=== PATIENT | female | born 1980 | race Caucasian/White ===

== ENCOUNTER 2017-12-22 19:07 | Emergency (ER) | payer MEDICAID ==
[~2017-12-22] VITALS: Ht 172.7 cm; Wt 118.2 kg
[2017-12-22 19:27] VITALS: Ht 172.7 cm; Wt 118.2 kg
[2017-12-22] MEDS ORDERED: BACTRIM DS TABL1 TAB PO (21:32)
[2017-12-22] MEDS ORDERED: VOLTAREN75 MG PO (21:32)
[2017-12-22 21:34] VITALS: BP 123/67
== END 2017-12-22 21:35 | disposition home or self-care (01) ==
LOC: D.ER 19:07
DX: L03.311 Cellulitis of abdominal wall (principal)

== ENCOUNTER 2018-10-25 18:14 | Emergency (ER) | payer MEDICAID ==
[~2018-10-25] VITALS: Ht 172.7 cm; Wt 115.9 kg
[~2018-10-25 18:14] MED LIST: BACTRIM DS TABL1 TAB PO; VOLTAREN75 MG PO
[2018-10-25 18:20] VITALS: Ht 172.7 cm; Wt 115.9 kg
[2018-10-25 18:58] LABS: HEMATOCRIT 36.3 % (36.0-48.0); HEMOGLOBIN 12.9 g/dL (12-16); MCH 29.7 pg (26.0-34.0); MCHC 35.5 g/dL (31.0-37.0); MCV 83.4 fL (80.0-100.0); MEAN PLATELET VOLUME 9.9 fL (7.4-10.4); PLATELET COUNT 69 10x3/uL (130-400); RBC 4.35 10x6/uL (4.00-5.40); RDW 13.1 % (11.5-14.5); WBC 3.6 10x3/uL (4.8-10.8)
[2018-10-25 19:09] LABS: ALBUMIN 2.5 g/dL (3.4-5.0); ANION GAP 15.6 mmol/L (8-16); BILIRUBIN - TOTAL 0.54 mg/dL (0.2-1.3); CALCIUM 7.7 mg/dL (8.5-10.1); CARBON DIOXIDE 22.5 mmol/L (21.0-32.0); CREATININE - SERUM 1.1 mg/dL (0.6-1.3); POTASSIUM - SERUM 3.1 mmol/L (3.5-5.1); PROTEIN - SERUM 6.6 g/dL (6.4-8.2)
[2018-10-25 19:47] LABS: LYMPHOCYTES 45 % (15-50); NEUTROPHILS 50 % (40-80); PLATELET ESTIMATE DECREASED
[2018-10-25 20:14] LABS: ERYTHROCYTE SEDIMENTATION RATE 34 mm/hr (0-20)
[2018-10-25 21:17] LABS: INR 1.12 (0.85-1.17); PROTIME 13.9 SECONDS (11.6-15.0)
[2018-10-25 21:18] LABS: APPEARANCE CLEAR (CLEAR); BILIRUBIN NEGATIVE (NEGATIVE); COLOR YELLOW (YELLOW); GLUCOSE 100 mg/dL (NEGATIVE); KETONE SMALL mg/dL (NEGATIVE); NITRITE NEGATIVE (NEGATIVE); PROTEIN NEGATIVE (NEGATIVE); SPECIFIC GRAVITY 1.025 (1.005-1.020); UROBILINOGEN NORMAL (NORMAL)
[2018-10-25 21:18] LABS: APTT 39.4 SECONDS (22.8-39.4)
[2018-10-25 21:41] LABS: CREATINE KINASE 42 UL (21-215); TROPONIN-I < 0.017 ng/mL (0.000-0.060)
[2018-10-25 22:05] LABS: AMYLASE - SERUM 23 U/L (25-115); LIPASE 58 U/L (73-393)
[2018-10-25] MEDS ORDERED: MONODOX100 MG PO (23:31)
[2018-10-25] MEDS ORDERED: VOLTAREN75 MG PO (23:33)
[2018-10-25] MEDS ORDERED: ZOFRAN ODT4 MG/UDTAB PO (23:33)
[2018-10-26 00:08] VITALS: BP 103/65
[2018-10-29 14:11] LABS: RMSF IGM 1.17 index (0.00-0.89)
[2018-11-01 13:11] LABS: A. PHAGOCYTOPHILIUM PCR Negative (Negative)
== END 2018-10-26 00:08 | disposition home or self-care (01) ==
LOC: D.ER 18:14
PROVIDERS: Family Medicine
DX: R11.2 Nausea with vomiting, unspecified (principal); E11.65 Type 2 diabetes mellitus with hyperglycemia; T14.8XXA Other injury of unspecified body region, initial encounter; R74.8 Abnormal levels of other serum enzymes; F17.200 Nicotine dependence, unspecified, uncomplicated

== ENCOUNTER → 2018-10-26 14:23 | Outpatient (CLI) | payer MEDICAID ==
[2018-10-25 18:20] VITALS: BMI 38.8
[~2018-10-26 14:23] MED LIST changes: +MONODOX100 MG PO; +ZOFRAN ODT4 MG/UDTAB PO
== END | disposition home or self-care (01) ==
LOC: D.CT 14:23
PROVIDERS: ATTEND Family Medicine
DX: R10.11 Right upper quadrant pain (principal)